=== PATIENT | female | born 1990 | race Caucasian/White ===

== ENCOUNTER 2017-05-30 17:29 | Emergency (ER) | payer SELFPAY ==
[2017-05-30 17:31] VITALS: BP 123/79; PULSE 80; RESP 18; TEMP 97.8; O2SAT 98
--- NOTE | 2017-05-30 18:25 | PD ---
HPI Chief Complaint: Medical Clearance Time Seen by Provider: 18:15 Travel History International Travel<30 days: No Contact w/Intl Traveler<30days: No Traveled to known affect area: No History of Present Illness HPI Examined in the presence of a female nurse. 27 her old female presents for evaluation of vaginal discharge. Symptoms started today. She reports slight associated discomfort with it. Denies any abdominal pain, nausea or vomiting, flank pain, fevers or chills. Her was just seen here for evaluation of urethral discharge suspicious for gonococcal versus chlamydial urethritis and the patient is requesting treatment for the same. She reports that she is currently menstruating. She reports that she is only sexually active with her . No other complaints at this time. PFSH Past Medical History ?: Not LMP: CURRENT Social History Alcohol Use: Yes Tobacco Use: No Allergies-Medications (Allergen,Severity, Reaction): Coded Allergies: No Known Allergies (Unverified , 05/30/17) Reported Meds & Prescriptions Reported Meds & Active Scripts Active No Active Prescriptions or Reported Medications Review of Systems Except as stated in HPI: all other systems reviewed are Neg Physical Exam Narrative GENERAL: Well developed well-nourished female in no acute distress SKIN: Warm and dry. HEAD: Atraumatic. Normocephalic. EYES: Pupils equal and round. No scleral icterus. No injection or drainage. ENT: No nasal bleeding or discharge. Mucous membranes pink and moist. NECK: Trachea midline. No JVD. CARDIOVASCULAR: Regular rate and rhythm. No murmur appreciated. RESPIRATORY: No accessory muscle use. Clear to auscultation. Breath sounds equal bilaterally. GASTROINTESTINAL: Abdomen soft, non-tender, nondistended. Hepatic and splenic margins not palpable. Data Data Last Documented VS Vital Signs Date Time Temp Pulse Resp B/P (MAP) Pulse Ox O2 Delivery O2 Flow Rate FiO2 05/30/17 17:31 97.8 80 18 123/79 (94) 98 Orders Orders Azithromycin Powd Pack (Zithromax Powd P (05/30/17 18:30) Ceftriaxone Inj (Rocephin Inj) (05/30/17 18:30) Lidocaine 1% Inj (50 Ml) (Xylocaine 1% I (05/30/17 18:30) Ed Urine Pregnancytest Poc (05/30/17 18:21) Ed Discharge Order (05/30/17 18:34) MDM Medical Decision Making Medical Screen Exam Complete: Yes Emergency Medical Condition: Yes Medical Record Reviewed: Yes Differential Diagnosis Cervicitis, pelvic inflammatory disease, vaginitis, vaginosis Narrative Course I offered to perform a pelvic examination for thoroughness over the patient is declining and would prefer to just be treated empirically for chlamydia and gonorrhea. The patient will be given azithromycin and Rocephin. Recommended follow-up at the health department. She is stable for discharge. Diagnosis Primary Impression: Vaginal discharge Additional Instructions: Follow-up as an outpatient for routine STD testing. Return for any emergent medical conditions. Med/Other Pt SpecificInfo: No Change to Meds Scripts No Active Prescriptions or Reported Meds Disposition: 01 DISCHARGE HOME Condition: Stable Jeronimo Simpson May 30, 2017 18:25
[2017-05-30] MEDS ORDERED: cefTRIAXone 250 MG VIAL IM ONE (18:30)
[2017-05-30] MEDS ORDERED: AZITHROMYCIN PWD FOR SUSP 1 GM PACKET PO ONE (18:30)
[2017-05-30] MEDS ORDERED: LIDOCAINE HCL 1% 50 ML VIAL IM ONE (18:30)
== END 2017-05-30 18:54 | disposition home or self-care (01) ==
LOC: NEPK 17:29
DX: N89.8 Other specified noninflammatory disorders of vagina (principal)
CPT/HCPCS: 84703; 96372; 99283; J0696